=== PATIENT | male | born 1935 | race Caucasian/White ===

== ENCOUNTER 2023-03-26 06:22 | Inpatient (IN) | payer MEDICARE, OTHER ==
[2023-03-26 06:52] LABS: #Eosinphils 0.1 thou/uL (0.0-0.7); #Monocytes 0.4 thou/uL (0.11-0.59); #Neutrophils 1.7 thou/uL (1.40-6.50); %Basophils 0.7 % (0.0-1.0); %Eosinophils 4.7 % (0.0-10.0); %Lymphocytes 19.3 % (21.0-51.0); %Monocytes 14.2 % (0.0-10.0); %Neutrophils 60.4 % (42.0-75.0); Hematocrit 37.4 % (42.0-52.0); Hemoglobin 11.9 g/dL (14.0-18.0); Mean Corpuscular HGB CONC 31.8 g/dL (32.0-36.0); Mean Platelet Volume 11.4 fL (7.4-10.4); RBC Distribution Width 14.8 % (11.5-14.5); Red Blood Cell (RBC) Count 3.31 mill/uL (4.70-6.10); White Blood Cell (WBC) Count 2.7 10x3/uL (4.8-10.8)
[2023-03-26 07:05] LABS: Platelet Count 71 10x3/uL (130-400)
[2023-03-26 07:16] LABS: ALT (SGPT) 21 U/L (8-55); AST (SGOT) 25 U/L (5-34); Albumin 3.6 g/dL (3.4-4.8); Alkaline Phosphatase 114 U/L (40-110); Anion Gap 14 mmol/L (10-20); BUN (Urea Nitrogen) 23 mg/dL (8.4-25.7); Bilirubin, Total 0.4 mg/dL (0.2-1.2); Calc. Creatinine Clearance 0 mL/min (70-130); Calcium 8.9 mg/dL (7.8-10.44); Carbon Dioxide 25 mmol/L (23-31); Chloride 103 mmol/L (98-107); Estimated GFR 54; Globulin 2.4 g/dL (2.4-3.5); Glucose 110 mg/dL (83-110); Lipase 9 U/L (8-78); Potassium 4.3 mmol/L (3.5-5.1); Sodium 138 mmol/L (136-145)
[2023-03-26 07:19] LABS: Troponin I 0.018 ng/mL (< 0.028)
[2023-03-26] MEDS ORDERED: Sodium Chloride 0.9% 100 ML ONE (07:48)
[2023-03-26] MEDS ORDERED: Cefepime 2 GM VIAL ONE (07:48)
[2023-03-26 07:52] LABS: Anisocytosis SLIGHT = 6-15 cells HPF (0-5); CellaVision Operator ID lab.dlt; Macrocytosis SLIGHT = 6-15 cells HPF (0-5); Platelet Adequacy Comment Platelets Decreased; Poikilocytosis SLIGHT = 6-15 cells HPF (0-5); Polychromasia SLIGHT = 2-3 cells HPF (0-2)
[2023-03-26] MEDS ORDERED: Vancomycin 1 GM/200 ML (FROZEN) BAG ONE (08:04)
[2023-03-26 08:51] LABS: Bacteria/HPF None Seen HPF (None Seen); Bilirubin Negative (Negative); Blood, Urine Negative (Negative); CAUTI Indications for Culture Alt mental st,lethar; Clarity Clear (Clear); Glucose, Urine (Dipstick) Normal (Negative); Ketone, Urine Negative (Negative); Leukocyte Negative Leu/uL (Negative); Nitrite Negative (Negative); Protein, Urine (Dipstick) 30 mg/dL (Neg-Trace); RBC/HPF 0-3 HPF (0-3); Specific Gravity, Urine 1.019 (1.002-1.036); Squamous Epithelial None Seen HPF (0-3); Urobilinogen Normal mg/dL (Less than 2); WBC/HPF 0-3 HPF (0-3); pH, Urine 6.5 (5.0-9.0)
[2023-03-26 08:54] LABS: Urine Culture Reflex No No
[2023-03-26 09:00] LABS: SARS-CoV-2 NAA Rapid Test DETECTED (NotDetected)
[2023-03-26 09:57] LABS: Lactic Acid 0.8 mmol/L (0.5-2.2)
[2023-03-26] MEDS ORDERED: Bisacodyl 10 MG SUPP PR PRN (11:41)
[2023-03-26] MEDS ORDERED: Bisacodyl 5 MG TAB PO PRN (11:41)
[2023-03-26] MEDS ORDERED: Acetaminophen 325 MG TAB PO PRN (11:41)
[2023-03-26] MEDS ORDERED: Senokot S 8.6-50 MG TAB PO PRN (11:41)
[2023-03-26 13:27] VITALS: BMI 33.9
[2023-03-26] MEDS: Azithromycin 250 MG TAB PO SCH (14:37)
[2023-03-26] MEDS: cefTRIAXone\\ROCEPHIN 1 GM in Sodium Chloride 0.9% 100 ML IVPB SCH (20:17)
[2023-03-26] MEDS: Famotidine 20 MG TAB PO SCH (20:18)
[2023-03-26] MEDS ORDERED: DULoxetine 30 MG CAP PO SCH (21:15)
[2023-03-26] MEDS ORDERED: Atorvastatin Calcium 20 MG TAB PO SCH (21:15)
[2023-03-26] MEDS ORDERED: Apixaban 5 MG TAB PO SCH (21:15)
[2023-03-26] MEDS ORDERED: Colchicine 0.6 MG TAB PO SCH (21:30)
[2023-03-26] MEDS ORDERED: CO Q-10 CAPSULE 50 MG PO SCH (21:45)
[2023-03-27 06:43] LABS: #Eosinphils 0.3 thou/uL (0.0-0.7); #Monocytes 0.4 thou/uL (0.11-0.59); %Basophils 1.4 % (0.0-1.0); %Eosinophils 9.3 % (0.0-10.0); %Lymphocytes 39.1 % (21.0-51.0); %Monocytes 15.8 % (0.0-10.0); Hematocrit 34.3 % (42.0-52.0); Hemoglobin 11.1 g/dL (14.0-18.0); Mean Corpuscular HGB CONC 32.4 g/dL (32.0-36.0); Mean Corpuscular Hemoglobin 36.8 pg (27.0-31.0); Mean Corpuscular Volume 113.6 fl (78.0-98.0); Mean Platelet Volume 11.1 fL (7.4-10.4); Red Blood Cell (RBC) Count 3.02 mill/uL (4.70-6.10); White Blood Cell (WBC) Count 2.8 10x3/uL (4.8-10.8)
[2023-03-27 06:44] LABS: Platelet Count 70 10x3/uL (130-400)
[2023-03-27 07:02] LABS: Anion Gap 10 mmol/L (10-20); BUN (Urea Nitrogen) 23 mg/dL (8.4-25.7); Calc. Creatinine Clearance 70 mL/min (70-130); Calcium 8.3 mg/dL (7.8-10.44); Carbon Dioxide 27 mmol/L (23-31); Chloride 105 mmol/L (98-107); Estimated GFR 59; Glucose 93 mg/dL (83-110); Potassium 3.9 mmol/L (3.5-5.1); Sodium 138 mmol/L (136-145)
[2023-03-27] MEDS: Calcitriol 0.25 MCG CAP PO SCH (07:57)
[2023-03-27] MEDS: Metoprolol Tartrate 25 MG TAB PO SCH (07:57)
[2023-03-27] MEDS: Colchicine 0.3 MG TAB PO SCH ×2 (07:58→21:55)
[2023-03-27] MEDS: Cholecalciferol 1,000 UNITS (25 MCG) TAB PO SCH (07:58)
[2023-03-27] MEDS: Finasteride 5 MG TAB PO SCH (07:58)
[2023-03-27] MEDS: Ascorbic Acid 500 mg Chewable Tablet PO SCH (07:58)
[2023-03-27] MEDS: Loratadine 10 MG TAB PO SCH (07:58)
[2023-03-27] MEDS: Allopurinol 300 MG TAB PO SCH (07:58)
[2023-03-27] MEDS: Apixaban 5 MG TAB PO SCH ×2 (07:59→21:56)
[2023-03-27] MEDS: Zinc Sulfate 220 MG CAP PO SCH (07:59)
[2023-03-27] MEDS ORDERED: MOLNUPIRAVIR (EUA) 200 MG CAPSULE PO SCH ×2 (11:30→21:00)
[2023-03-27] MEDS: Azithromycin 250 MG TAB PO SCH (12:38)
[2023-03-27] MEDS: CO Q-10 CAPSULE 50 MG PO SCH (21:55)
[2023-03-27] MEDS: MOLNUPIRAVIR (EUA) 200 MG CAPSULE PO SCH (21:55)
[2023-03-27] MEDS: cefTRIAXone\\ROCEPHIN 1 GM in Sodium Chloride 0.9% 100 ML IVPB SCH (21:55)
[2023-03-27] MEDS: Famotidine 20 MG TAB PO SCH (21:56)
[2023-03-27] MEDS: Atorvastatin Calcium 20 MG TAB PO SCH (21:56)
[2023-03-27] MEDS: DULoxetine 30 MG CAP PO SCH (21:56)
[2023-03-28] MEDS: Calcitriol 0.25 MCG CAP PO SCH (08:30)
[2023-03-28] MEDS: Ascorbic Acid 500 mg Chewable Tablet PO SCH (08:30)
[2023-03-28] MEDS: Allopurinol 300 MG TAB PO SCH (08:31)
[2023-03-28] MEDS: Cholecalciferol 1,000 UNITS (25 MCG) TAB PO SCH (08:31)
[2023-03-28] MEDS: Colchicine 0.3 MG TAB PO SCH ×2 (08:31→23:05)
[2023-03-28] MEDS: Metoprolol Tartrate 25 MG TAB PO SCH (08:31)
[2023-03-28] MEDS: Zinc Sulfate 220 MG CAP PO SCH (08:31)
[2023-03-28] MEDS: Finasteride 5 MG TAB PO SCH (08:31)
[2023-03-28] MEDS: Apixaban 5 MG TAB PO SCH ×2 (08:31→23:06)
[2023-03-28] MEDS: MOLNUPIRAVIR (EUA) 200 MG CAPSULE PO SCH ×2 (08:43→23:06)
[2023-03-28 11:07] LABS: #Eosinphils 0.4 thou/uL (0.0-0.7); #Monocytes 0.4 thou/uL (0.11-0.59); #Neutrophils 1.7 thou/uL (1.40-6.50); %Basophils 0.5 % (0.0-1.0); %Eosinophils 9.3 % (0.0-10.0); %Lymphocytes 37.1 % (21.0-51.0); %Monocytes 10.5 % (0.0-10.0); %Neutrophils 42.4 % (42.0-75.0); Hematocrit 34.9 % (42.0-52.0); Hemoglobin 11.4 g/dL (14.0-18.0); Mean Corpuscular HGB CONC 32.7 g/dL (32.0-36.0); Mean Corpuscular Hemoglobin 36.7 pg (27.0-31.0); Mean Corpuscular Volume 112.2 fl (78.0-98.0); Mean Platelet Volume 11.9 fL (7.4-10.4); RBC Distribution Width 14.8 % (11.5-14.5); Red Blood Cell (RBC) Count 3.11 mill/uL (4.70-6.10); White Blood Cell (WBC) Count 4.1 10x3/uL (4.8-10.8)
[2023-03-28 11:11] LABS: Platelet Count 86 10x3/uL (130-400)
[2023-03-28 11:27] LABS: Anion Gap 10 mmol/L (10-20); BUN (Urea Nitrogen) 23 mg/dL (8.4-25.7); Calc. Creatinine Clearance 71 mL/min (70-130); Calcium 8.4 mg/dL (7.8-10.44); Carbon Dioxide 28 mmol/L (23-31); Estimated GFR 60; Glucose 96 mg/dL (83-110); Potassium 4.1 mmol/L (3.5-5.1)
[2023-03-28 12:00] LABS: Chloride 103 mmol/L (98-107); Sodium 136 mmol/L (136-145)
[2023-03-28 12:37] LABS: Macrocytosis SLIGHT = 6-15 cells (100X) (0-5/hpf)
[2023-03-28] MEDS: Azithromycin 250 MG TAB PO SCH (12:37)
[2023-03-28 12:38] LABS: Platelet Adequacy Comment Appears Decreased; Polychromasia SLIGHT = 2-3 cells (100X) (0-2/hpf)
[2023-03-28] MEDS: Albuterol 200 PUFF (6.7GM INHALER) INH SCH ×2 (16:33→19:14)
[2023-03-28] MEDS: CO Q-10 CAPSULE 50 MG PO SCH (23:06)
[2023-03-28] MEDS: guaiFENesin/DM ER PO SCH (23:06)
[2023-03-28] MEDS: Famotidine 20 MG TAB PO SCH (23:06)
[2023-03-28] MEDS: Atorvastatin Calcium 20 MG TAB PO SCH (23:06)
[2023-03-28] MEDS: DULoxetine 30 MG CAP PO SCH (23:06)
[2023-03-28] MEDS: cefTRIAXone\\ROCEPHIN 1 GM in Sodium Chloride 0.9% 100 ML IVPB SCH (23:06)
[2023-03-29 06:39] LABS: #Eosinphils 0.4 thou/uL (0.0-0.7); #Monocytes 0.3 thou/uL (0.11-0.59); #Neutrophils 1.8 thou/uL (1.40-6.50); %Basophils 0.3 % (0.0-1.0); %Eosinophils 10.1 % (0.0-10.0); %Lymphocytes 34.3 % (21.0-51.0); %Monocytes 6.8 % (0.0-10.0); %Neutrophils 48.2 % (42.0-75.0); Hematocrit 34.6 % (42.0-52.0); Hemoglobin 11.2 g/dL (14.0-18.0); Mean Corpuscular HGB CONC 32.4 g/dL (32.0-36.0); Mean Corpuscular Hemoglobin 36.5 pg (27.0-31.0); Mean Corpuscular Volume 112.7 fl (78.0-98.0); Mean Platelet Volume 11.7 fL (7.4-10.4); RBC Distribution Width 14.6 % (11.5-14.5); Red Blood Cell (RBC) Count 3.07 mill/uL (4.70-6.10); White Blood Cell (WBC) Count 3.7 10x3/uL (4.8-10.8)
[2023-03-29 06:42] LABS: Platelet Count 85 10x3/uL (130-400)
[2023-03-29 07:10] LABS: Anion Gap 10 mmol/L (10-20); BUN (Urea Nitrogen) 23 mg/dL (8.4-25.7); Calc. Creatinine Clearance 83 mL/min (70-130); Calcium 8.4 mg/dL (7.8-10.44); Carbon Dioxide 27 mmol/L (23-31); Chloride 105 mmol/L (98-107); Estimated GFR 72; Glucose 89 mg/dL (83-110); Potassium 3.7 mmol/L (3.5-5.1); Sodium 138 mmol/L (136-145)
[2023-03-29] MEDS: Cholecalciferol 1,000 UNITS (25 MCG) TAB PO SCH (08:39)
[2023-03-29] MEDS: Loratadine 10 MG TAB PO SCH (08:39)
[2023-03-29] MEDS: Allopurinol 300 MG TAB PO SCH (08:40)
[2023-03-29] MEDS: Apixaban 5 MG TAB PO SCH ×2 (08:40→22:26)
[2023-03-29] MEDS: Zinc Sulfate 220 MG CAP PO SCH (08:40)
[2023-03-29] MEDS: guaiFENesin/DM ER PO SCH ×2 (08:40→22:27)
[2023-03-29] MEDS: Metoprolol Tartrate 25 MG TAB PO SCH (08:40)
[2023-03-29] MEDS: Finasteride 5 MG TAB PO SCH (08:40)
[2023-03-29] MEDS: Colchicine 0.3 MG TAB PO SCH ×2 (08:40→22:26)
[2023-03-29] MEDS: Calcitriol 0.25 MCG CAP PO SCH (08:40)
[2023-03-29] MEDS: Ascorbic Acid 500 mg Chewable Tablet PO SCH (08:40)
[2023-03-29] MEDS: MOLNUPIRAVIR (EUA) 200 MG CAPSULE PO SCH ×2 (08:42→22:27)
[2023-03-29] MEDS: Famotidine 20 MG TAB PO SCH ×2 (08:48→22:26)
[2023-03-29] MEDS: Albuterol 200 PUFF (6.7GM INHALER) INH SCH ×4 (08:49→19:21)
[2023-03-29 13:18] LABS: Bacteria/HPF None Seen HPF (None Seen); Bilirubin Negative (Negative); Blood, Urine 3+ (Negative); CAUTI Indications for Culture Acute Hematuria; Clarity Clear (Clear); Glucose, Urine (Dipstick) Normal (Negative); Ketone, Urine Negative (Negative); Leukocyte Negative Leu/uL (Negative); Nitrite Negative (Negative); Protein, Urine (Dipstick) 10 mg/dL (Neg-Trace); Specific Gravity, Urine 1.012 (1.002-1.036); Squamous Epithelial None Seen HPF (0-3); Urobilinogen Normal mg/dL (Less than 2); WBC/HPF None Seen HPF (0-3); pH, Urine 6.5 (5.0-9.0)
[2023-03-29 13:25] LABS: Urine Culture Reflex No No
[2023-03-29] MEDS: Atorvastatin Calcium 20 MG TAB PO SCH (22:26)
[2023-03-29] MEDS: CO Q-10 CAPSULE 50 MG PO SCH (22:26)
[2023-03-29] MEDS: DULoxetine 30 MG CAP PO SCH (22:26)
[2023-03-29] MEDS: cefTRIAXone\\ROCEPHIN 1 GM in Sodium Chloride 0.9% 100 ML IVPB SCH (22:27)
[2023-03-30 06:53] LABS: #Eosinphils 0.4 thou/uL (0.0-0.7); #Monocytes 0.3 thou/uL (0.11-0.59); #Neutrophils 2.3 thou/uL (1.40-6.50); %Basophils 0.5 % (0.0-1.0); %Eosinophils 8.7 % (0.0-10.0); %Lymphocytes 26.1 % (21.0-51.0); %Monocytes 7.2 % (0.0-10.0); %Neutrophils 57.3 % (42.0-75.0); Hematocrit 34.5 % (42.0-52.0); Hemoglobin 11.2 g/dL (14.0-18.0); Mean Corpuscular HGB CONC 32.5 g/dL (32.0-36.0); Mean Corpuscular Hemoglobin 36.5 pg (27.0-31.0); Mean Corpuscular Volume 112.4 fl (78.0-98.0); Mean Platelet Volume 11.5 fL (7.4-10.4); Platelet Count 96 10x3/uL (130-400); RBC Distribution Width 14.6 % (11.5-14.5); Red Blood Cell (RBC) Count 3.07 mill/uL (4.70-6.10)
[2023-03-30 07:11] LABS: Anion Gap 11 mmol/L (10-20); BUN (Urea Nitrogen) 21 mg/dL (8.4-25.7); Calc. Creatinine Clearance 73 mL/min (70-130); Calcium 8.2 mg/dL (7.8-10.44); Carbon Dioxide 27 mmol/L (23-31); Chloride 105 mmol/L (98-107); Estimated GFR 62; Glucose 90 mg/dL (83-110); Potassium 3.9 mmol/L (3.5-5.1); Sodium 139 mmol/L (136-145)
[2023-03-30] MEDS: Albuterol 200 PUFF (6.7GM INHALER) INH SCH ×2 (07:11→11:25)
[2023-03-30 08:28] VITALS: TEMP 98.1
[2023-03-30] MEDS ORDERED: Furosemide 40 MG TAB PO SCH (09:00)
[2023-03-30] MEDS ORDERED: Potassium Chloride 20 MEQ TAB PO SCH (09:00)
[2023-03-30] MEDS ORDERED: Primidone 50 MG TAB PO SCH (09:00)
[2023-03-30] MEDS ORDERED: valACYclovir 500 MG TAB PO SCH (09:00)
[2023-03-30] MEDS ORDERED: Dexamethasone 4 MG TAB PO SCH (09:00)
[2023-03-30] MEDS: Calcitriol 0.25 MCG CAP PO SCH (09:27)
[2023-03-30] MEDS: guaiFENesin/DM ER PO SCH (09:27)
[2023-03-30] MEDS: Allopurinol 300 MG TAB PO SCH (09:27)
[2023-03-30] MEDS: Famotidine 20 MG TAB PO SCH (09:27)
[2023-03-30] MEDS: Colchicine 0.3 MG TAB PO SCH (09:27)
[2023-03-30] MEDS: Cholecalciferol 1,000 UNITS (25 MCG) TAB PO SCH (09:28)
[2023-03-30] MEDS: Metoprolol Tartrate 25 MG TAB PO SCH (09:28)
[2023-03-30] MEDS: Apixaban 5 MG TAB PO SCH (09:28)
[2023-03-30] MEDS: Ascorbic Acid 500 mg Chewable Tablet PO SCH (09:28)
[2023-03-30] MEDS: Loratadine 10 MG TAB PO SCH (09:28)
[2023-03-30] MEDS: Zinc Sulfate 220 MG CAP PO SCH (09:28)
[2023-03-30] MEDS: Finasteride 5 MG TAB PO SCH (09:28)
[2023-03-30] MEDS: MOLNUPIRAVIR (EUA) 200 MG CAPSULE PO SCH (09:29)
[2023-03-30 12:45] VITALS: BP 164/78
[2023-03-30] MEDS ORDERED: Magnesium Oxide 250 MG TAB PO SCH (21:00)
== END 2023-03-30 14:25 | disposition home or self-care (01) | DRG 178 ==
LOC: ERS 06:22 → EDBD 06:22 → T4-A 12:16 → OBSVTOIN 03-28 15:21
PROVIDERS: ADMIT Hospitalist; ATTEND Family Medicine
PROC: 3E0333Z Introduction of Anti-inflammatory into Peripheral Vein, Percutaneous Approach (ICD-10-PCS; principal; 2023-03-28)
DX: U07.1 COVID-19 (principal); C90.00 Multiple myeloma not having achieved remission; I50.22 Chronic systolic (congestive) heart failure; J96.11 Chronic respiratory failure with hypoxia; N40.0 Benign prostatic hyperplasia without lower urinary tract symptoms; M10.9 Gout, unspecified; F17.210 Nicotine dependence, cigarettes, uncomplicated; I25.10 Atherosclerotic heart disease of native coronary artery without angina pectoris; R31.0 Gross hematuria; Z95.1 Presence of aortocoronary bypass graft; Z98.890 Other specified postprocedural states; Z92.21 Personal history of antineoplastic chemotherapy; Z79.01 Long term (current) use of anticoagulants
CPT/HCPCS: 36415; 71045; 76770; 80048; 80053; 81001; 83605; 83690; 83735; 83880; 84484; 85025; 87040; 87149; 93005; 96375; 96376; G0378; J0692; J0696; J3370-JW; J3490

== ENCOUNTER 2023-06-05 13:49 | Inpatient (IN) | payer MEDICARE, OTHER ==
[2023-06-05 14:49] LABS: #Eosinphils 0.1 thou/uL (0.0-0.7); #Monocytes 0.6 thou/uL (0.11-0.59); #Neutrophils 8.2 thou/uL (1.40-6.50); %Basophils 0.3 % (0.0-1.0); %Eosinophils 1.2 % (0.0-10.0); %Lymphocytes 4.8 % (21.0-51.0); %Monocytes 6.8 % (0.0-10.0); %Neutrophils 86.6 % (42.0-75.0); Hematocrit 36.8 % (42.0-52.0); Mean Corpuscular HGB CONC 32.6 g/dL (32.0-36.0); Mean Corpuscular Hemoglobin 36.9 pg (27.0-31.0); Mean Corpuscular Volume 113.2 fl (78.0-98.0); Mean Platelet Volume 11.1 fL (7.4-10.4); Platelet Count 121 10x3/uL (130-400); RBC Distribution Width 14.9 % (11.5-14.5); Red Blood Cell (RBC) Count 3.25 mill/uL (4.70-6.10); White Blood Cell (WBC) Count 9.5 10x3/uL (4.8-10.8)
[2023-06-05 15:22] LABS: CellaVision Operator ID LAB.KB; Macrocytosis SLIGHT = 6-15 cells HPF (0-5); Ovalocytes SLIGHT = 2-5 cells HPF (0-1); Platelet Adequacy Comment Platelets Decreased; Polychromasia SLIGHT = 2-3 cells HPF (0-2); Stomatocytes SLIGHT = 2-5 cells HPF (0-1)
[2023-06-05 15:26] LABS: ALT (SGPT) 17 U/L (8-55); AST (SGOT) 22 U/L (5-34); Albumin 3.6 g/dL (3.4-4.8); Alkaline Phosphatase 113 U/L (40-110); Anion Gap 11 mmol/L (10-20); BUN (Urea Nitrogen) 23 mg/dL (8.4-25.7); Bilirubin, Total 0.7 mg/dL (0.2-1.2); Calc. Creatinine Clearance 0 mL/min (70-130); Carbon Dioxide 28 mmol/L (23-31); Chloride 104 mmol/L (98-107); Estimated GFR 56; Globulin 2.3 g/dL (2.4-3.5); Glucose 108 mg/dL (83-110); Protein, Total 5.9 g/dL (5.8-8.1); Sodium 139 mmol/L (136-145)
[2023-06-05] MEDS ORDERED: Acetaminophen 500 MG TAB ONE (15:33)
[2023-06-05 15:57] LABS: Troponin I 0.012 ng/mL (< 0.028)
[2023-06-05 17:21] LABS: Influenza A by NAA Not Detected (NotDetected); Influenza B by NAA Not Detected (NotDetected); SARS-CoV-2 NAA Rapid Test Not Detected (NotDetected)
[2023-06-05] MEDS ORDERED: Acetaminophen 650 MG Suppository PR PRN (20:26)
[2023-06-05] MEDS ORDERED: Ondansetron PF 4 MG/2 ML Vial IVP PRN (20:26)
[2023-06-05] MEDS ORDERED: Calcium Carbonate 500 MG ChewTAB PO PRN (20:26)
[2023-06-05] MEDS ORDERED: Senokot S 8.6-50 MG TAB PO PRN (20:26)
[2023-06-05] MEDS ORDERED: Piperacillin/Tazobactam 4.5 GM VIAL ONE (21:20)
[2023-06-05] MEDS ORDERED: Sodium Chloride 0.9% 100 ML ONE (21:20)
[2023-06-05 21:55] LABS: Bilirubin Negative (Negative); Blood, Urine Negative (Negative); CAUTI Indications for Culture Alt mental st,lethar; Clarity Clear (Clear); Glucose, Urine (Dipstick) Normal (Negative); Ketone, Urine Negative (Negative); Leukocyte 25 Leu/uL (Negative); Nitrite Negative (Negative); Protein, Urine (Dipstick) Negative (Neg-Trace); RBC/HPF 0-3 HPF (0-3); Specific Gravity, Urine 1.014 (1.002-1.036); Squamous Epithelial 0-3 HPF (0-3); Urobilinogen Normal mg/dL (Less than 2); WBC/HPF 0-3 HPF (0-3); pH, Urine 5.5 (5.0-9.0)
[2023-06-05 21:58] LABS: Bacteria/HPF 1+ HPF (None Seen); Urine Culture Reflex No No
[2023-06-05] MEDS ORDERED: Vancomycin 1 GM/200 ML (FROZEN) BAG ONE (22:29)
[2023-06-05] MEDS: Cefepime 2 GM in Sodium Chloride 0.9% 100 ML IVPB SCH (23:29)
[2023-06-05] MEDS: DULoxetine 30 MG CAP PO SCH (23:30)
[2023-06-05] MEDS: Famotidine/PF 20 mg/2ml Vial SLOW IVP SCH (23:30)
[2023-06-05] MEDS: Atorvastatin Calcium 20 MG TAB PO SCH (23:30)
[2023-06-05] MEDS: Apixaban 5 MG TAB PO SCH (23:30)
[2023-06-05] MEDS: Sodium Chloride 0.9% 1,000 ML IV SCH ×2 (23:30→23:50)
[2023-06-06] MEDS: Albumin 25% 25 GM (100 mL) BOT IVPB SCH ×2 (00:31→19:31)
[2023-06-06 00:54] VITALS: BMI 37.3
[2023-06-06 01:30] LABS: Legionella Urinary Ag Negative (Negative); Strep pneumo Urine Ag NEGATIVE (NEGATIVE)
[2023-06-06 05:52] LABS: #Eosinphils 0.2 thou/uL (0.0-0.7); #Monocytes 0.7 thou/uL (0.11-0.59); #Neutrophils 7.9 thou/uL (1.40-6.50); %Basophils 0.4 % (0.0-1.0); %Lymphocytes 10.3 % (21.0-51.0); %Monocytes 7.3 % (0.0-10.0); %Neutrophils 79.7 % (42.0-75.0); Hematocrit 33.8 % (42.0-52.0); Hemoglobin 11.1 g/dL (14.0-18.0); Mean Corpuscular HGB CONC 32.8 g/dL (32.0-36.0); Mean Corpuscular Hemoglobin 37.2 pg (27.0-31.0); Mean Corpuscular Volume 113.4 fl (78.0-98.0); Mean Platelet Volume 10.9 fL (7.4-10.4); Platelet Count 111 10x3/uL (130-400); RBC Distribution Width 14.8 % (11.5-14.5); Red Blood Cell (RBC) Count 2.98 mill/uL (4.70-6.10)
[2023-06-06 06:22] LABS: ALT (SGPT) 13 U/L (8-55); AST (SGOT) 16 U/L (5-34); Albumin 3.7 g/dL (3.4-4.8); Alkaline Phosphatase 97 U/L (40-110); Anion Gap 14 mmol/L (10-20); BUN (Urea Nitrogen) 24 mg/dL (8.4-25.7); Bilirubin, Total 0.8 mg/dL (0.2-1.2); Calc. Creatinine Clearance 70 mL/min (70-130); Carbon Dioxide 29 mmol/L (23-31); Chloride 103 mmol/L (98-107); Estimated GFR 56; Globulin 2.3 g/dL (2.4-3.5); Glucose 101 mg/dL (83-110); Magnesium 1.9 mg/dL (1.6-2.6); Potassium 3.9 mmol/L (3.5-5.1); Sodium 142 mmol/L (136-145)
[2023-06-06] MEDS: Acetaminophen 325 MG TAB PO PRN (07:04)
[2023-06-06] MEDS: Piperacillin/Tazobactam 3.375 GM in Sodium Chloride 0.9% 100 ML IVPB SCH (08:37)
[2023-06-06] MEDS: Primidone 50 MG TAB PO SCH (08:38)
[2023-06-06] MEDS: valACYclovir 500 MG TAB PO SCH (08:38)
[2023-06-06] MEDS: Finasteride 5 MG TAB PO SCH (08:38)
[2023-06-06] MEDS: Calcitriol 0.25 MCG CAP PO SCH (08:38)
[2023-06-06] MEDS: Metoprolol Tartrate 25 MG TAB PO SCH (08:38)
[2023-06-06] MEDS: Multivitamin w/Zinc Stress 1 TAB PO SCH (08:38)
[2023-06-06] MEDS: Allopurinol 300 MG TAB PO SCH (08:38)
[2023-06-06] MEDS ORDERED: Azithromycin 500 MG in Sodium Chloride 0.9% 250 ML 250 ML IVPB SCH (09:00)
[2023-06-06] MEDS: Ipratropium/Albuterol 3 ML NEB NEB SCH ×2 (10:00→11:00)
[2023-06-06] MEDS: Ipratropium/Albuterol 3 ML NEB ONE (18:24)
[2023-06-07] MEDS ORDERED: Colchicine 0.3 MG TAB PO SCH (09:00)
[2023-06-07] MEDS ORDERED: Cetirizine HCl 10 MG TAB PO SCH (09:00)
[2023-06-07] MEDS ORDERED: Furosemide 20 MG TAB PO SCH (09:00)
[2023-06-07] MEDS: Loratadine 10 MG TAB PO SCH (09:11)
[2023-06-07] MEDS: Furosemide 40 MG TAB PO SCH (09:11)
[2023-06-07] MEDS: Colchicine 0.6 MG TAB PO SCH (09:11)
[2023-06-07] MEDS: Potassium Chloride 20 MEQ TAB PO SCH (09:11)
[2023-06-07] MEDS: Furosemide 40 MG (4 mL) VIAL SLOW IVP SCH (11:20)
[2023-06-07] MEDS: guaiFENesin ER 600 MG TAB PO SCH ×2 (11:20→21:03)
[2023-06-07] MEDS: Fluticasone Propionate Nasal Spray 16 gm Bottle NASAL SCH (11:21)
[2023-06-07] MEDS: Ipratropium/Albuterol 3 ML NEB NEB SCH (13:50)
[2023-06-08 04:12] LABS: #Eosinphils 0.4 thou/uL (0.0-0.7); #Monocytes 0.5 thou/uL (0.11-0.59); #Neutrophils 4.7 thou/uL (1.40-6.50); %Basophils 0.3 % (0.0-1.0); %Eosinophils 5.4 % (0.0-10.0); %Lymphocytes 13.7 % (21.0-51.0); %Neutrophils 72.1 % (42.0-75.0); Hematocrit 32.9 % (42.0-52.0); Hemoglobin 10.6 g/dL (14.0-18.0); Mean Corpuscular HGB CONC 32.2 g/dL (32.0-36.0); Mean Corpuscular Hemoglobin 36.7 pg (27.0-31.0); Mean Corpuscular Volume 113.8 fl (78.0-98.0); Mean Platelet Volume 10.9 fL (7.4-10.4); Platelet Count 115 10x3/uL (130-400); RBC Distribution Width 14.6 % (11.5-14.5); Red Blood Cell (RBC) Count 2.89 mill/uL (4.70-6.10); White Blood Cell (WBC) Count 6.5 10x3/uL (4.8-10.8)
[2023-06-08 04:39] LABS: Anion Gap 14 mmol/L (10-20); BUN (Urea Nitrogen) 25 mg/dL (8.4-25.7); Calc. Creatinine Clearance 59 mL/min (70-130); Calcium 8.9 mg/dL (7.8-10.44); Carbon Dioxide 29 mmol/L (23-31); Chloride 101 mmol/L (98-107); Estimated GFR 46; Glucose 104 mg/dL (83-110); Potassium 3.6 mmol/L (3.5-5.1); Sodium 140 mmol/L (136-145)
[2023-06-08] MEDS: Furosemide 20 MG TAB PO SCH (16:01)
[2023-06-08] MEDS: Potassium Chloride 20 MEQ TAB PO SCH (16:02)
[2023-06-08] MEDS: Doxycycline 100 MG CAP PO SCH (21:07)
[2023-06-09 05:07] LABS: #Eosinphils 0.4 thou/uL (0.0-0.7); #Monocytes 0.6 thou/uL (0.11-0.59); #Neutrophils 3.6 thou/uL (1.40-6.50); %Basophils 0.7 % (0.0-1.0); %Eosinophils 7.2 % (0.0-10.0); %Lymphocytes 17.8 % (21.0-51.0); %Neutrophils 63.8 % (42.0-75.0); Hemoglobin 11.3 g/dL (14.0-18.0); Mean Corpuscular HGB CONC 32.3 g/dL (32.0-36.0); Mean Corpuscular Hemoglobin 36.2 pg (27.0-31.0); Mean Corpuscular Volume 112.2 fl (78.0-98.0); Mean Platelet Volume 10.9 fL (7.4-10.4); Platelet Count 123 10x3/uL (130-400); RBC Distribution Width 14.6 % (11.5-14.5); Red Blood Cell (RBC) Count 3.12 mill/uL (4.70-6.10); White Blood Cell (WBC) Count 5.7 10x3/uL (4.8-10.8)
[2023-06-09 05:46] LABS: Anisocytosis SLIGHT = 6-15 cells HPF (0-5); CellaVision Operator ID lab.sh2; Macrocytosis MODERATE=16-30 cells HPF (0-5); Ovalocytes SLIGHT = 2-5 cells HPF (0-1); Platelet Adequacy Comment Platelets Decreased; Polychromasia SLIGHT = 2-3 cells HPF (0-2)
[2023-06-09 05:59] LABS: Anion Gap 12 mmol/L (10-20); BUN (Urea Nitrogen) 25 mg/dL (8.4-25.7); Calc. Creatinine Clearance 69 mL/min (70-130); Calcium 9.4 mg/dL (7.8-10.44); Carbon Dioxide 34 mmol/L (23-31); Chloride 98 mmol/L (98-107); Estimated GFR 56; Glucose 97 mg/dL (83-110); Magnesium 1.8 mg/dL (1.6-2.6); Potassium 3.3 mmol/L (3.5-5.1); Sodium 141 mmol/L (136-145)
[2023-06-09] MEDS ORDERED: Sodium Chloride 0.65% Nasal 44 ML BOT EA NARE PRN (09:52)
[2023-06-09] MEDS: Furosemide 40 MG TAB PO SCH (09:56)
[2023-06-09] MEDS: Metoprolol Tartrate 25 MG TAB PO SCH (17:36)
[2023-06-10 05:34] LABS: #Basophils 0.1 thou/uL (0.0-0.2); #Eosinphils 0.6 thou/uL (0.0-0.7); #Monocytes 0.5 thou/uL (0.11-0.59); #Neutrophils 2.8 thou/uL (1.40-6.50); %Lymphocytes 22.5 % (21.0-51.0); %Monocytes 10.7 % (0.0-10.0); %Neutrophils 54.6 % (42.0-75.0); Hematocrit 35.9 % (42.0-52.0); Hemoglobin 11.5 g/dL (14.0-18.0); Mean Corpuscular Hemoglobin 36.6 pg (27.0-31.0); Mean Corpuscular Volume 114.3 fl (78.0-98.0); Mean Platelet Volume 10.5 fL (7.4-10.4); Platelet Count 123 10x3/uL (130-400); RBC Distribution Width 14.4 % (11.5-14.5); Red Blood Cell (RBC) Count 3.14 mill/uL (4.70-6.10); White Blood Cell (WBC) Count 5.1 10x3/uL (4.8-10.8)
[2023-06-10 06:18] LABS: Anion Gap 13 mmol/L (10-20); BUN (Urea Nitrogen) 29 mg/dL (8.4-25.7); Calc. Creatinine Clearance 61 mL/min (70-130); Calcium 8.9 mg/dL (7.8-10.44); Carbon Dioxide 34 mmol/L (23-31); Chloride 99 mmol/L (98-107); Estimated GFR 47; Glucose 98 mg/dL (83-110); Potassium 3.5 mmol/L (3.5-5.1); Sodium 142 mmol/L (136-145)
[2023-06-10] MEDS ORDERED: Benzonatate 100 MG CAP PO PRN (14:28)
[2023-06-10] MEDS: predniSONE 20 MG TAB PO SCH (16:26)
[2023-06-10] MEDS: guaiFENesin/DM ER PO SCH (21:54)
[2023-06-11 05:03] LABS: #Monocytes 0.1 thou/uL (0.11-0.59); #Neutrophils 3.8 thou/uL (1.40-6.50); %Basophils 0.4 % (0.0-1.0); %Eosinophils 0.6 % (0.0-10.0); %Lymphocytes 13.3 % (21.0-51.0); %Neutrophils 81.4 % (42.0-75.0); Hematocrit 37.7 % (42.0-52.0); Hemoglobin 12.2 g/dL (14.0-18.0); Mean Corpuscular HGB CONC 32.4 g/dL (32.0-36.0); Mean Corpuscular Hemoglobin 36.4 pg (27.0-31.0); Mean Corpuscular Volume 112.5 fl (78.0-98.0); Platelet Count 151 10x3/uL (130-400); RBC Distribution Width 14.2 % (11.5-14.5); Red Blood Cell (RBC) Count 3.35 mill/uL (4.70-6.10); White Blood Cell (WBC) Count 4.7 10x3/uL (4.8-10.8)
[2023-06-11 05:07] LABS: Anion Gap 18 mmol/L (10-20); BUN (Urea Nitrogen) 38 mg/dL (8.4-25.7); Calc. Creatinine Clearance 58 mL/min (70-130); Calcium 9.5 mg/dL (7.8-10.44); Carbon Dioxide 30 mmol/L (23-31); Chloride 100 mmol/L (98-107); Estimated GFR 45; Glucose 129 mg/dL (83-110); Potassium 3.7 mmol/L (3.5-5.1); Sodium 144 mmol/L (136-145)
[2023-06-11 05:49] LABS: Anisocytosis SLIGHT = 6-15 cells HPF (0-5); CellaVision Operator ID lab.sh2; Macrocytosis MODERATE=16-30 cells HPF (0-5); Ovalocytes SLIGHT = 2-5 cells HPF (0-1); Platelet Adequacy Comment Platelets Normal; Polychromasia SLIGHT = 2-3 cells HPF (0-2)
[2023-06-11] MEDS ORDERED: Furosemide 40 MG TAB PO SCH (07:30)
[2023-06-11] MEDS: Allopurinol 100 MG TAB PO SCH (08:50)
[2023-06-11] MEDS ORDERED: Allopurinol 100 MG TAB PO SCH (09:00)
[2023-06-11] MEDS ORDERED: Polyethylene Glycol 3350 17 GM Packet PO PRN (10:43)
[2023-06-11] MEDS: Milk Of Magnesia 30 ML UDCUP PO SCH (10:57)
[2023-06-11] MEDS: Budesonide 0.5 MG/2 ML NEB INH SCH (19:06)
[2023-06-11] MEDS: Senokot S 8.6-50 MG TAB PO SCH (20:33)
[2023-06-12 04:42] LABS: #Eosinphils 0.4 thou/uL (0.0-0.7); #Monocytes 0.4 thou/uL (0.11-0.59); #Neutrophils 3.7 thou/uL (1.40-6.50); %Basophils 0.7 % (0.0-1.0); %Eosinophils 6.7 % (0.0-10.0); %Lymphocytes 19.5 % (21.0-51.0); %Neutrophils 65.2 % (42.0-75.0); Hematocrit 34.8 % (42.0-52.0); Hemoglobin 11.3 g/dL (14.0-18.0); Mean Corpuscular HGB CONC 32.5 g/dL (32.0-36.0); Mean Corpuscular Hemoglobin 37.2 pg (27.0-31.0); Mean Corpuscular Volume 114.5 fl (78.0-98.0); Platelet Count 137 10x3/uL (130-400); RBC Distribution Width 14.6 % (11.5-14.5); Red Blood Cell (RBC) Count 3.04 mill/uL (4.70-6.10); White Blood Cell (WBC) Count 5.7 10x3/uL (4.8-10.8)
[2023-06-12 05:34] LABS: Anion Gap 13 mmol/L (10-20); BUN (Urea Nitrogen) 41 mg/dL (8.4-25.7); Calc. Creatinine Clearance 65 mL/min (70-130); Calcium 9.2 mg/dL (7.8-10.44); Carbon Dioxide 33 mmol/L (23-31); Chloride 101 mmol/L (98-107); Estimated GFR 51; Glucose 107 mg/dL (83-110); Magnesium 2.3 mg/dL (1.6-2.6); Potassium 3.3 mmol/L (3.5-5.1); Sodium 144 mmol/L (136-145)
[2023-06-12] MEDS: Potassium Chloride 20 MEQ TAB PO SCH ×2 (08:45→17:20)
[2023-06-13 01:16] VITALS: TEMP 97.7
[2023-06-13 07:19] LABS: #Basophils 0.1 thou/uL (0.0-0.2); #Eosinphils 0.5 thou/uL (0.0-0.7); #Monocytes 0.4 thou/uL (0.11-0.59); #Neutrophils 3.5 thou/uL (1.40-6.50); %Eosinophils 8.1 % (0.0-10.0); %Lymphocytes 22.6 % (21.0-51.0); %Monocytes 6.4 % (0.0-10.0); %Neutrophils 60.7 % (42.0-75.0); Hematocrit 34.7 % (42.0-52.0); Hemoglobin 11.1 g/dL (14.0-18.0); Mean Corpuscular Hemoglobin 36.8 pg (27.0-31.0); Mean Corpuscular Volume 114.9 fl (78.0-98.0); Mean Platelet Volume 10.8 fL (7.4-10.4); Platelet Count 134 10x3/uL (130-400); RBC Distribution Width 14.6 % (11.5-14.5); Red Blood Cell (RBC) Count 3.02 mill/uL (4.70-6.10); White Blood Cell (WBC) Count 5.8 10x3/uL (4.8-10.8)
[2023-06-13 07:40] VITALS: BP 165/87
[2023-06-13 07:43] LABS: Anion Gap 13 mmol/L (10-20); BUN (Urea Nitrogen) 37 mg/dL (8.4-25.7); Calc. Creatinine Clearance 63 mL/min (70-130); Calcium 9.4 mg/dL (7.8-10.44); Carbon Dioxide 31 mmol/L (23-31); Chloride 103 mmol/L (98-107); Estimated GFR 49; Glucose 100 mg/dL (83-110); Potassium 3.6 mmol/L (3.5-5.1); Sodium 143 mmol/L (136-145)
[2023-06-13 08:03] LABS: CellaVision Operator ID LAB.KW3; Platelet Adequacy Comment Platelets Normal; RBC Morphology Within Normal Limits
[2023-06-13] MEDS: Amoxicillin/Potassium Clav 875 MG TAB PO SCH (08:51)
[2023-06-13] MEDS ORDERED: Folic Acid 1 MG TAB PO SCH (21:00)
[2023-06-13] MEDS ORDERED: Cyanocobalamin (Vitamin B-12) 1,000 MCG TAB PO SCH (21:00)
[2023-06-13] MEDS ORDERED: Multivit, Therapeutic 1 TAB PO SCH (21:00)
== END 2023-06-13 14:06 | DRG 871 ==
LOC: ERS 13:49 → SUATTDRO 13:49 → T4-B 20:27 → OBSVTOIN 20:27
PROVIDERS: ADMIT Internal Medicine; ATTEND Internal Medicine
DX: A41.9 Sepsis, unspecified organism (principal); G93.41 Metabolic encephalopathy; J18.9 Pneumonia, unspecified organism; J96.01 Acute respiratory failure with hypoxia; J69.0 Pneumonitis due to inhalation of food and vomit; I50.23 Acute on chronic systolic (congestive) heart failure; I13.0 Hypertensive heart and chronic kidney disease with heart failure and stage 1 through stage 4 chronic kidney disease, or unspecified chronic kidney disease; I50.22 Chronic systolic (congestive) heart failure; R65.20 Severe sepsis without septic shock; E78.5 Hyperlipidemia, unspecified; I25.10 Atherosclerotic heart disease of native coronary artery without angina pectoris; N18.30 Chronic kidney disease, stage 3 unspecified; E66.9 Obesity, unspecified; D69.6 Thrombocytopenia, unspecified; D63.8 Anemia in other chronic diseases classified elsewhere; D53.9 Nutritional anemia, unspecified; Z95.1 Presence of aortocoronary bypass graft; Z86.711 Personal history of pulmonary embolism; Z79.01 Long term (current) use of anticoagulants; Z79.899 Other long term (current) drug therapy; Z68.37 Body mass index [BMI] 37.0-37.9, adult
CPT/HCPCS: 36415; 71045; 74230; 80048; 80053; 81001; 83605; 83735; 83880; 84145; 84484; 85025; 87040; 87070; 87081; 87205; 87430; 87449; 87635; 87899; 93005; 93306; 94640; 96365; 96375; J0692; J1642; J1940; J2543; J3370-JW; J3490; J7050; J7512; J7620; J7626; P9047; S0028

== ENCOUNTER 2024-03-04 19:31 | Emergency (ER) | payer MEDICARE, OTHER ==
[2024-03-04] MEDS ORDERED: HYDROcodone/Acetaminophen 5/325 mg Tablet ONE (20:12)
[2024-03-04] MEDS ORDERED: TETANUS AND DIPHTHERIA TOX/PF 0.5 ML DISP.SYRIN ONE (20:12)
[2024-03-04] MEDS ORDERED: Acetaminophen 500 MG TAB ONE (20:12)
[2024-03-10 15:38] LABS: ALT (SGPT) 37 U/L (8-55); AST (SGOT) 40 U/L (5-34); Albumin 3.3 g/dL (3.4-4.8); Alkaline Phosphatase 148 U/L (40-110); Anion Gap 13 mmol/L (10-20); BUN (Urea Nitrogen) 23 mg/dL (8.4-25.7); Bilirubin, Total 0.5 mg/dL (0.2-1.2); Calc. Creatinine Clearance 0 mL/min (70-130); Carbon Dioxide 28 mmol/L (23-31); Chloride 106 mmol/L (98-107); Estimated GFR 48; Globulin 2.5 g/dL (2.4-3.5); Glucose 126 mg/dL (83-110); Magnesium 1.9 mg/dL (1.6-2.6); Potassium 4.6 mmol/L (3.5-5.1); Protein, Total 5.8 g/dL (5.8-8.1); Sodium 142 mmol/L (136-145)
[2024-03-10 15:40] LABS: %Basophils 1.4 % (0.0-1.0); %Eosinophils 6.9 % (0.0-10.0); %Lymphocytes 21.6 % (21.0-51.0); %Monocytes 8.6 % (0.0-10.0); Hematocrit 40.6 % (42.0-52.0); Hemoglobin 12.9 g/dL (14.0-18.0); Mean Corpuscular HGB CONC 31.8 g/dL (32.0-36.0); Mean Corpuscular Hemoglobin 36.2 pg (27.0-31.0); Platelet Count 106 10x3/uL (130-400); RBC Distribution Width 14.9 % (11.5-14.5); Red Blood Cell (RBC) Count 3.56 mill/uL (4.70-6.10); White Blood Cell (WBC) Count 4.21 10x3/uL (4.8-10.8)
[2024-03-10 15:41] LABS: #Basophils 0.06 10x3/uL (0.0-0.2); #Eosinophils 0.29 10x3/uL (0.0-0.7); #Monocytes 0.36 10x3/uL (0.11-0.59); #Neutrophils 2.57 10x3/uL (1.40-6.50); Macrocytosis SLIGHT = 6-15 cells (100X) (0-5/hpf)
[2024-03-10 15:43] LABS: Platelet Adequacy Comment Appears Decreased
[2024-03-10 15:44] LABS: Clarity Clear (Clear); Glucose, Urine (Dipstick) Normal (Negative); Ketone, Urine Negative (Negative); Leukocyte Negative Leu/uL (Negative); Nitrite Negative (Negative); Protein, Urine (Dipstick) Negative (Neg-Trace); Specific Gravity, Urine 1.007 (1.002-1.036); Urobilinogen Normal mg/dL (Less than 2); pH, Urine 6.5 (5.0-9.0)
[2024-03-10 15:45] LABS: Bacteria/HPF None Seen HPF (None Seen); Bilirubin Negative (Negative); Blood, Urine Negative (Negative); RBC/HPF 0-3 HPF (0-3); Squamous Epithelial None Seen HPF (0-3); WBC/HPF 0-3 HPF (0-3)
== END 2024-03-05 17:16 ==
LOC: ERS 19:31
DX: S82.144A Nondisplaced bicondylar fracture of right tibia, initial encounter for closed fracture (principal); M79.672 Pain in left foot; I25.10 Atherosclerotic heart disease of native coronary artery without angina pectoris; I10 Essential (primary) hypertension; E78.5 Hyperlipidemia, unspecified; Z23 Encounter for immunization; Z79.01 Long term (current) use of anticoagulants; Z79.899 Other long term (current) drug therapy; X50.1XXA Overexertion from prolonged static or awkward postures, initial encounter; Y93.89 Activity, other specified; Y92.009 Unspecified place in unspecified non-institutional (private) residence as the place of occurrence of the external cause
CPT/HCPCS: 80053; 81001; 83735; 85025; 90471; 90714; 96374; 96376